=== PATIENT | male | born 1985 | race Caucasian/White ===

== ENCOUNTER 2021-07-04 01:27 | Emergency (ER) | payer BC ==
[~2021-07-04] VITALS: Ht 175.3 cm; Wt 86.2 kg
[~2021-07-04 01:27] MED LIST: ANTIHISTAMINE; COUGH; PREDNISONE50 MG PO; PROAIR HFA8.5 GM IH; ZPAK; [UNRECOGNIZED DRUG - OTHER]
[2021-07-04] MEDS ORDERED: AUGMENTIN 875-1 EACH PO (04:54)
[2021-07-04] MEDS ORDERED: ACETAMINOPHEN-1 EAC2 PO (04:54)
[2021-07-04] MEDS ORDERED: IBUPROFEN 800800 MG PO (04:54)
[2021-07-04 05:05] VITALS: BP 132/67
== END 2021-07-04 05:05 | disposition home or self-care (01) ==
LOC: M.ERS 01:27
DX: H66.92 Otitis media, unspecified, left ear (principal); F17.210 Nicotine dependence, cigarettes, uncomplicated